=== PATIENT | male | born 1965 | race African-American/Black ===

== ENCOUNTER 2017-10-03 12:01 | Emergency (ER) | payer MEDICAID ==
[~2017-10-03] VITALS: Ht 157.5 cm; Wt 64.4 kg
[2017-10-03 12:01] VITALS: BP 199/114
[2017-10-03] MEDS ORDERED: LORazepam Inj 2mg/ml 1ml IV ONE (12:15)
[2017-10-03] MEDS ORDERED: levETIRAcetam 500mg/NS100ml 100 ML IVPB ONE (12:15)
[2017-10-03 13:16] LABS: BASOPHILS % (AUTO) 2.2 % (0.0-2.0); EOSINOPHILS % (AUTO) 1.7 % (0.0-3.0); HEMATOCRIT 42.1 % (42.0-52.0); HEMOGLOBIN 14.1 G/DL (14.2-18.0); LYMPHOCYTES % (AUTO) 19.3 % (20.0-45.0); MEAN CORPUSCULAR VOLUME 93 FL (80-99); NEUTROPHILS % (AUTO) 67.9 % (45.0-75.0); PLATELET COUNT 249 K/UL (150-450); RED BLOOD COUNT 4.52 M/UL (4.70-6.10); RED CELL DISTRIBUTION WIDTH 11.4 % (11.6-14.8); WHITE BLOOD COUNT 4.6 K/UL (4.8-10.8)
[2017-10-03 13:24] LABS: ANION GAP 7 mmol/L (5-15); BLOOD UREA NITROGEN 16 mg/dL (7-18); CALCIUM 9.3 MG/DL (8.5-10.1); CARBON DIOXIDE 27 MMOL/L (21-32); CHLORIDE 104 MMOL/L (98-107); CREATININE 1.1 MG/DL (0.55-1.30); POTASSIUM 3.9 MMOL/L (3.5-5.1); SODIUM 138 MMOL/L (136-145)
[2017-10-03 13:29] LABS: ALANINE AMINOTRANSFERASE 32 U/L (12-78); ALBUMIN 3.8 G/DL (3.4-5.0); ALBUMIN/GLOBULIN RATIO 0.9 (1.0-2.7); ALKALINE PHOSPHATASE 119 U/L (46-116); ASPARTATE AMINO TRANSFERASE 28 U/L (15-37); BILIRUBIN,TOTAL 0.4 MG/DL (0.2-1.0); CREATINE KINASE 748 U/L (26-308)
[2017-10-03 14:44] LABS: APPEARANCE,URINE SLIGHTLY CLOUDY; BILIRUBIN, URINE NEGATIVE (NEGATIVE); GLUCOSE, URINE (UA) NEGATIVE (NEGATIVE); KETONES,URINE NEGATIVE (NEGATIVE); LEUKOCYTE ESTERASE ,URINE NEGATIVE (NEGATIVE); NITRITE,URINE NEGATIVE (NEGATIVE); PH,URINE 6 (4.5-8.0); PROTEIN,URINE 3+ (NEGATIVE); UROBILINOGEN,URINE 4 MG/DL (0.0-1.0)
[2017-10-03 14:46] LABS: COLOR,URINE YELLOW
--- NOTE | 2017-10-03 15:08 | Emergency Room Report ---
History of Present Illness General Chief Complaint: Seizure Source: Patient, EMS Present Illness HPI Patient presents with generalized seizure. Witnessed by house-mates. No incontinence or trauma. Has had seizures in the past and supposed to be taking Keppra. Recently, PMD stated he could reduce the dose to one a day as it has been 2 years since the last seizure. He states he has missed a dose. Before, his Mom monitored his meds, but he is in a fdc and has been responsible for taking his medicines on his own. No pain, headache. No change in the weakness. S/P CVA with L hemiparesis. HTN Allergies: Coded Allergies: No Known Allergies (Unverified , 10/03/17) Patient History Past Medical History: see triage record Social History: Denies: smoking Social History Narrative fdc Reviewed Nursing Documentation: PMH: Agreed; PSxH: Agreed Nursing Documentation-PMH Hx Hypertension: Yes Hx Cerebrovascular Accident: Yes - Left side defecit Hx Seizures: Yes Review of Systems All Other Systems: negative except mentioned in HPI Physical Exam Vital Signs Date Time Temp Pulse Resp B/P (MAP) Pulse Ox O2 Delivery O2 Flow Rate FiO2 10/03/17 11:45 98.3 95 16 199/114 99 Room Air 98.2 Neurologic: alert, oriented x3, 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 DDX: breakthrough seizure, electrolyte abnormality, occult infection, aspiration amongst others. Neurologic exam unchanged according to patient and family. CT not indicated. Evaluation with EKG, CXR and labs. Patient will be treated with ativan, keppra. EKG no injury (LVH). CXR sl large cor. Labs unremarkable. No more seizure activity. Family uncovered that patient stopped taking all of his medications 5 days ago. Not state why. Admonished to take medicines. (They have a weekly pill dispenser.) He has enough medications for f/u with his doctor. Patient stable for outpatient observation and treatment. Laboratory Tests Test 10/03/17 12:45 10/03/17 14:15 White Blood Count 4.6 K/UL (4.8-10.8) L Red Blood Count 4.52 M/UL (4.70-6.10) L Hemoglobin 14.1 G/DL (14.2-18.0) L Hematocrit 42.1 % (42.0-52.0) Mean Corpuscular Volume 93 FL (80-99) Mean Corpuscular Hemoglobin 31.2 PG (27.0-31.0) H Mean Corpuscular Hemoglobin Concent 33.5 G/DL (32.0-36.0) Red Cell Distribution Width 11.4 % (11.6-14.8) L Platelet Count 249 K/UL (150-450) Mean Platelet Volume 5.3 FL (6.5-10.1) L Neutrophils (%) (Auto) 67.9 % (45.0-75.0) Lymphocytes (%) (Auto) 19.3 % (20.0-45.0) L Monocytes (%) (Auto) 9.0 % (1.0-10.0) Eosinophils (%) (Auto) 1.7 % (0.0-3.0) Basophils (%) (Auto) 2.2 % (0.0-2.0) H Sodium Level 138 MMOL/L (136-145) Potassium Level 3.9 MMOL/L (3.5-5.1) Chloride Level 104 MMOL/L (98-107) Carbon Dioxide Level 27 MMOL/L (21-32) Anion Gap 7 mmol/L (5-15) Blood Urea Nitrogen 16 mg/dL (7-18) Creatinine 1.1 MG/DL (0.55-1.30) Estimate Glomerular Filtration Rate > 60 mL/min (>60) Glucose Level 107 MG/DL (74-106) H Calcium Level 9.3 MG/DL (8.5-10.1) Total Bilirubin 0.4 MG/DL (0.2-1.0) Aspartate Amino Transferase (AST) 28 U/L (15-37) Alanine Aminotransferase (ALT) 32 U/L (12-78) Alkaline Phosphatase 119 U/L (46-116) H Total Creatine Kinase 748 U/L (26-308) H Total Protein 8.0 G/DL (6.4-8.2) Albumin 3.8 G/DL (3.4-5.0) Globulin 4.2 g/dL Albumin/Globulin Ratio 0.9 (1.0-2.7) L Urine Color Yellow Urine Appearance Slightly cloudy Urine pH 6 (4.5-8.0) Urine Specific [place] 1.020 (1.005-1.035) Urine Protein 3+ (NEGATIVE) H Urine Glucose (UA) Negative (NEGATIVE) Urine Ketones Negative (NEGATIVE) Urine Occult Blood 2+ (NEGATIVE) H Urine Nitrite Negative (NEGATIVE) Urine Bilirubin Negative (NEGATIVE) Urine Urobilinogen 4 MG/DL (0.0-1.0) H Urine Leukocyte Esterase Negative (NEGATIVE) Urine RBC 2-4 /HPF (0 - 0) H Urine WBC 0-2 /HPF (0 - 0) Urine Squamous Epithelial Cells Occasional /LPF Urine Bacteria Occasional /HPF (NONE) Urine Opiates Screen Negative (NEGATIVE) Urine Barbiturates Screen Negative (NEGATIVE) Phencyclidine (PCP) Screen Negative (NEGATIVE) Urine Amphetamines Screen Negative (NEGATIVE) Urine Benzodiazepines Screen Negative (NEGATIVE) Urine Cocaine Screen Negative (NEGATIVE) Urine Marijuana (THC) Screen Negative (NEGATIVE) EKG Diagnostic Results Rate: normal Rhythm: NSR ST Segments: no acute changes Rhythm Strip Diag. Results EP Interpretation: yes Rhythm: NSR, no PVC's, no ectopy Chest X-Ray Diagnostic Results Chest X-Ray Diagnostic Results : Chest X-Ray Ordered: Yes # of Views/Limited/Complete: 1 View Indication: Other EP Interpretation: Yes Interpretation: no consolidation, no effusion, no pneumothorax, other - inc cor Impression: No acute disease Electronically Signed by: Henrry Lynn MD Last Vital Signs Date Time Temp Pulse Resp B/P (MAP) Pulse Ox O2 Delivery O2 Flow Rate FiO2 10/03/17 16:05 98.0 85 19 150/97 98 Room Air 98.2 Status: improved Disposition: ASSISTED LIVING Condition: Improved Referrals: NON PHYSICIAN (PCP) Henrry Lynn M.D. Oct 03, 2017 15:08
[2017-10-03 15:11] VITALS: BP 140/107
[2017-10-03 16:05] VITALS: BP 150/97
--- NOTE | 2017-10-04 17:22 | Cardiology Report ---
APPROVED REPORT EKG Measurement Heart [id number] Normal sinus rhythm T wave abnormality, consider lateral ischemia Abnormal ECG
--- NOTE | 2017-10-05 16:56 | Diagnostic Imaging Report ---
Indication: Chest pain Technique: XRAY Chest 1v Comparison: None Findings: Heart size and mediastinal contours within normal limits given AP projection and low lung volumes. There is no focal airspace consolidation, pleural effusion or pneumothorax. There is scoliosis and degenerative change of the spine. A 8mm radiodensity projecting over the left lateral lower chest may be external to the patient. There are well-corticated densities adjacent to the right humeral head possibly suggesting calcific tendinitis of the right shoulder. Correlate clinically. No acute osseous abnormality seen. IMPRESSION: No radiographic evidence of acute cardiopulmonary disease. Additional findings as above.
== END 2017-10-03 16:05 | disposition home or self-care (01) ==
LOC: EDBD 12:01 → EMR 13:04
DX: G40.909 Epilepsy, unspecified, not intractable, without status epilepticus (principal); Z91.14 Patient's other noncompliance with medication regimen; I10 Essential (primary) hypertension; G81.94 Hemiplegia, unspecified affecting left nondominant side
CPT/HCPCS: 36415; 71045; 80053; 80307; 81003; 82550; 85025; 93005; 96374; 96375; 99283; J1953